=== PATIENT | male | born 1975 | race Two or more races ===

== ENCOUNTER 2023-07-25 09:02 | Emergency (ER) | payer OTHER ==
[2023-07-25 09:17] VITALS: BP 125/78; PULSE 73; RESP 18; TEMP 98.2; BMI 24.9
== END 2023-07-25 12:47 | disposition home or self-care (01) ==
LOC: JERFT 09:02 → JER 09:02 → JERFT 12:47
DX: S93.491A Sprain of other ligament of right ankle, initial encounter (principal); M25.511 Pain in right shoulder; M25.571 Pain in right ankle and joints of right foot; W10.8XXA Fall (on) (from) other stairs and steps, initial encounter
CPT/HCPCS: 73030-TC-RT-FY; 73610-TC-RT-FY; 73630-TC-RT-FY; 99284-25

== ENCOUNTER 2023-12-25 05:41 | Emergency (ER) | payer OTHER ==
[2023-12-25 05:50] VITALS: BP 112/81; PULSE 76; RESP 18; TEMP 98.1; BMI 25.4
[2023-12-25] MEDS ORDERED: ACETAMINOPHEN INJECTION 100 ML IVPB ONE (06:25)
[2023-12-25] MEDS: ACETAMINOPHEN 1000 MG/100 ML BAG IVPB ONE (06:40)
[2023-12-25 06:52] LABS: BASO % 1.4 % (0-2.0); EOS % 4.9 % (0-4.5); HEMATOCRIT 34.4 % (35.4-49); LYMPH % 17.3 % (8-40); MCHC 32.1 g/dl (32.0-35.9); MEAN CELL VOLUME 77.9 fl (80-96); MEAN PLT VOLUME 8.1 fl (7.5-11.1); MONO % 17.4 % (3.8-10.2); PLATELET COUNT 133 10^3/uL (134-434); RBC 4.41 M/mm3 (4.00-5.60); RDW 18.9 % (11.9-15.9); WHITE BLOOD COUNT 4.1 K/mm3 (4.0-10.0)
[2023-12-25 06:59] LABS: INR 1.27 (0.83-1.09); PROTHROMBIN TIME (PATIENT) 14.3 SEC (9.7-13.0)
[2023-12-25 07:01] LABS: ACTIVATED PTT 38.2 SECONDS (25.2-36.5)
[2023-12-25 07:07] LABS: POTASSIUM 3.5 mmol/L (3.5-5.1)
[2023-12-25 07:09] LABS: BLOOD UREA NITROGEN 5.8 mg/dL (7-18); CALCIUM 7.8 mg/dL (8.5-10.1)
[2023-12-25 07:10] LABS: ALBUMIN 1.6 g/dl (3.4-5.0); MAGNESIUM 1.9 mg/dL (1.8-2.4)
[2023-12-25 07:13] LABS: CREATININE 0.8 mg/dL (0.55-1.3)
[2023-12-25 07:14] LABS: BILIRUBIN,TOTAL 0.8 mg/dL (0.2-1); TOT PROT 6.8 g/dl (6.4-8.2)
[2023-12-25 07:18] LABS: N-TERMINAL BNP 90.4 pg/ml (5-125)
[2023-12-25] MEDS ORDERED: FUROSEMIDE 40 MG/4 ML INJECTABLE VIAL ONE (11:06)
[2023-12-25] MEDS: FUROSEMIDE 40 MG/4 ML INJECTABLE VIAL IVPUSH ONE (11:17)
== END 2023-12-25 12:20 | disposition home or self-care (01) ==
LOC: JER 05:41
PROC: 3E033NZ Introduction of Analgesics, Hypnotics, Sedatives into Peripheral Vein, Percutaneous Approach (ICD-10-PCS; principal; 2023-12-25)
PROC: 3E033GC Introduction of Other Therapeutic Substance into Peripheral Vein, Percutaneous Approach (ICD-10-PCS; 2023-12-25)
DX: G62.9 Polyneuropathy, unspecified (principal); K62.5 Hemorrhage of anus and rectum; M79.89 Other specified soft tissue disorders; R60.0 Localized edema; R26.2 Difficulty in walking, not elsewhere classified; M79.661 Pain in right lower leg; M79.662 Pain in left lower leg
CPT/HCPCS: 36415; 80053; 83735; 83880; 85025; 85610; 85730; 93005; 93010; 93970-TC; 99285-25; J0131

== ENCOUNTER 2024-08-08 01:23 | Inpatient (IN) | payer OTHER ==
[2024-08-08] MEDS ORDERED: ONDANSETRON 4 MG/2 ML VIAL ONE (03:01)
[2024-08-08] MEDS ORDERED: FAMOTIDINE 20 MG/50 ML IVPB 20 MG/50 ML MG IVPB ONE (03:01)
[2024-08-08] MEDS: FAMOTIDINE 20 MG/50 ML IVPB 20 MG/50 ML MG IVPB ONE (03:19)
[2024-08-08] MEDS: ONDANSETRON 4 MG/2 ML VIAL IVPB ONE (03:19)
[2024-08-08] MEDS: SODIUM CHLORIDE 0.9% 500 ML INFUS.BAG IV ONE (03:19)
[2024-08-08 03:23] LABS: BASO % 1.3 % (0-2.0); EOS % 0.1 % (0-4.5); HEMATOCRIT 34.5 % (35.4-49); LYMPH % 4.4 % (8-40); MCH 23.9 pg (25.7-33.7); MEAN CELL VOLUME 74.8 fl (80-96); MEAN PLT VOLUME 8.5 fl (7.5-11.1); NEUT % 77.2 % (42.8-82.8); PLATELET COUNT 142 10^3/uL (134-434); RBC 4.61 M/mm3 (4.00-5.60); RDW 20.9 % (11.9-15.9); WHITE BLOOD COUNT 6.1 K/mm3 (4.0-10.0)
[2024-08-08 03:48] LABS: INR 1.24 (0.83-1.09); POTASSIUM 3.2 mmol/L (3.5-5.1); PROTHROMBIN TIME (PATIENT) 13.9 SEC (9.7-13.0)
[2024-08-08 03:50] LABS: CALCIUM 8.5 mg/dL (8.5-10.1)
[2024-08-08 03:51] LABS: ACTIVATED PTT 33.4 SECONDS (25.2-36.5); ALBUMIN 2.7 g/dl (3.4-5.0); BLOOD UREA NITROGEN 9.7 mg/dL (7-18); MAGNESIUM 1.4 mg/dL (1.8-2.4)
[2024-08-08 03:54] LABS: CREATININE 1.1 mg/dL (0.55-1.3); PHOSPHOROUS 2.8 mg/dL (2.5-4.9)
[2024-08-08 03:55] LABS: BILIRUBIN,TOTAL 1.3 mg/dL (0.2-1); TOT PROT 7.8 g/dl (6.4-8.2)
[2024-08-08 04:02] LABS: ANISOCYTOSIS 1+; HELMET CELLS 1+; MACROCYTOSIS 0; OVALOCYTE 1+; TEAR DROP CELLS 1+
[2024-08-08 04:04] LABS: LACTIC ACID 9.4 mmol/L (0.4-2.0)
[2024-08-08] MEDS ORDERED: SODIUM CHLORIDE 0.9% 500 ML INFUS.BAG IV ONE (04:17)
[2024-08-08] MEDS ORDERED: MAGNESIUM SULFATE IN WATER 2 GM/50 ML IVPB IVPB ONE (04:22)
[2024-08-08] MEDS: DEXTROSE 5%-NORMAL SALINE 1,000 ML IV ONE (04:30)
[2024-08-08] MEDS: MAGNESIUM SULF 50% (8.12 MEQ/2 ML-1 GM VIAL) IVPB ONE (04:30)
[2024-08-08] MEDS ORDERED: KCL 10 MEQ IVPB 30 MEQ/300 ML INFUS.BAG IVPB ONE (04:32)
[2024-08-08] MEDS ORDERED: DEXTROSE 50%-WATER 25 GM/50 ML DISP.SYRIN ONE (04:33)
[2024-08-08] MEDS ORDERED: TRIMETHOBENZAMIDE HCL 200MG/2ML INJ IM ONE (04:37)
[2024-08-08] MEDS: TRIMETHOBENZAMIDE HCL 200MG/2ML INJ IM ONE (04:41)
[2024-08-08] MEDS: KCL 10 MEQ IVPB 10 MEQ/100 ML INFUS.BAG IVPB SCH (05:07)
[2024-08-08] MEDS ORDERED: diazePAM CARPU-JECT 10 MG/2 ML DISP.SYRIN ONE ×2 (08:30→09:23)
[2024-08-08 08:39] LABS: VENOUS BASE EXCESS -0.7 mmol/L (-2-2); VENOUS O2 SATURATION 67.6 % (70-80); VENOUS PCO2 29.3 mmHg (38-52); VENOUS PH 7.493 (7.310-7.410)
[2024-08-08] MEDS: diazePAM CARPU-JECT 10 MG/2 ML DISP.SYRIN IVPUSH ONE ×2 (08:40→09:31)
[2024-08-08 08:56] LABS: LACTIC ACID 3.8 mmol/L (0.4-2.0)
[2024-08-08] MEDS: THIAMINE HCL 200 MG/2 ML VIAL IVPB SCH (11:00)
[2024-08-08] MEDS ORDERED: THIAMINE HCL 200 MG/2 ML VIAL ONE (11:04)
[2024-08-08] MEDS: ONDANSETRON 4 MG/2 ML VIAL IVPB PRN (16:56)
[2024-08-08] MEDS: SODIUM CHLORIDE 1,000 ML IV SCH (20:39)
[2024-08-09 09:13] LABS: POTASSIUM 3.7 mmol/L (3.5-5.1)
[2024-08-09 09:22] LABS: ALBUMIN 2.2 g/dl (3.4-5.0); BLOOD UREA NITROGEN 8.4 mg/dL (7-18); CALCIUM 7.9 mg/dL (8.5-10.1)
[2024-08-09 09:26] LABS: CREATININE 0.8 mg/dL (0.55-1.3)
[2024-08-09 09:27] LABS: TOT PROT 6.2 g/dl (6.4-8.2)
[2024-08-09] MEDS: PANTOPRAZOLE SODIUM 40 MG VIAL IVPUSH SCH (11:08)
[2024-08-09] MEDS: ENOXAPARIN NA (PORCINE) 40 MG/0.4 ML DISP.SYRIN SQ SCH (11:08)
[2024-08-09] MEDS: KCL 10 MEQ IVPB 10 MEQ/100 ML INFUS.BAG IVPB SCH (11:10)
[2024-08-09] MEDS: SPIRONOLACTONE 25 MG TABLET PO SCH (11:10)
[2024-08-10 09:16] LABS: HEMATOCRIT 32.8 % (35.4-49); HEMOGLOBIN 10.3 GM/dL (11.7-16.9); MCHC 31.3 g/dl (32.0-35.9); MEAN CELL VOLUME 76.6 fl (80-96); MEAN PLT VOLUME 9.1 fl (7.5-11.1); PLATELET COUNT 120 10^3/uL (134-434); RBC 4.28 M/mm3 (4.00-5.60); RDW 20.6 % (11.9-15.9); WHITE BLOOD COUNT 3.6 K/mm3 (4.0-10.0)
[2024-08-10 09:54] LABS: POTASSIUM 3.9 mmol/L (3.5-5.1)
[2024-08-10 10:33] LABS: ANISOCYTOSIS 2+; MACROCYTOSIS 0
[2024-08-10 10:42] LABS: CALCIUM 8.4 mg/dL (8.5-10.1)
[2024-08-10 10:43] LABS: ALBUMIN 2.2 g/dl (3.4-5.0); BLOOD UREA NITROGEN 8.7 mg/dL (7-18)
[2024-08-10 10:47] LABS: CREATININE 0.8 mg/dL (0.55-1.3)
[2024-08-10 10:48] LABS: BILIRUBIN,TOTAL 1.5 mg/dL (0.2-1); TOT PROT 6.4 g/dl (6.4-8.2)
[2024-08-10 16:13] VITALS: BMI 25.9
[2024-08-10 23:18] LABS: HIV INTERPRETATION NEGATIVE (NEGATIVE)
[2024-08-11 08:09] LABS: HEMATOCRIT 32.6 % (35.4-49); HEMOGLOBIN 10.3 GM/dL (11.7-16.9); MCH 24.3 pg (25.7-33.7); MCHC 31.6 g/dl (32.0-35.9); MEAN CELL VOLUME 76.8 fl (80-96); MEAN PLT VOLUME 9.1 fl (7.5-11.1); PLATELET COUNT 126 10^3/uL (134-434); RBC 4.24 M/mm3 (4.00-5.60); RDW 20.7 % (11.9-15.9); WHITE BLOOD COUNT 4.5 K/mm3 (4.0-10.0)
[2024-08-11 08:42] LABS: POTASSIUM 4.1 mmol/L (3.5-5.1)
[2024-08-11 08:51] LABS: ALBUMIN 2.2 g/dl (3.4-5.0); CALCIUM 8.3 mg/dL (8.5-10.1)
[2024-08-11 08:52] LABS: BLOOD UREA NITROGEN 9.2 mg/dL (7-18)
[2024-08-11 08:55] LABS: CREATININE 0.9 mg/dL (0.55-1.3)
[2024-08-11 08:57] LABS: BILIRUBIN,TOTAL 1.3 mg/dL (0.2-1); TOT PROT 6.4 g/dl (6.4-8.2)
[2024-08-11 09:38] LABS: ANISOCYTOSIS 1+
[2024-08-11] MEDS: SODIUM CHLORIDE 0.45% 1,000 ML IV SCH (15:27)
[2024-08-12] MEDS: LACTULOSE 20 GM/30 ML UDC (FOR ORAL USE ONLY) PO SCH (15:54)
[2024-08-13] MEDS: ACETAMINOPHEN 325 MG TABLET (FP) PO PRN (14:25)
[2024-08-14 08:46] LABS: BASO % 1.7 % (0-2.0); EOS % 9.1 % (0-4.5); HEMATOCRIT 36.9 % (35.4-49); HEMOGLOBIN 11.3 GM/dL (11.7-16.9); LYMPH % 19.2 % (8-40); MCH 23.9 pg (25.7-33.7); MCHC 30.6 g/dl (32.0-35.9); MEAN CELL VOLUME 78.1 fl (80-96); MEAN PLT VOLUME 8.6 fl (7.5-11.1); MONO % 19.9 % (3.8-10.2); NEUT % 50.1 % (42.8-82.8); PLATELET COUNT 149 10^3/uL (134-434); RBC 4.73 M/mm3 (4.00-5.60); RDW 20.5 % (11.9-15.9); WHITE BLOOD COUNT 3.7 K/mm3 (4.0-10.0)
[2024-08-14 08:55] LABS: POTASSIUM 4.5 mmol/L (3.5-5.1)
[2024-08-14 08:57] LABS: CALCIUM 9.1 mg/dL (8.5-10.1)
[2024-08-14 08:58] LABS: ALBUMIN 2.4 g/dl (3.4-5.0); BLOOD UREA NITROGEN 7.7 mg/dL (7-18)
[2024-08-14 09:03] LABS: BILIRUBIN,TOTAL 1.1 mg/dL (0.2-1); TOT PROT 6.9 g/dl (6.4-8.2)
[2024-08-14 09:30] LABS: ANISOCYTOSIS 2+; MACROCYTOSIS 0
[2024-08-15] MEDS: METOCLOPRAMIDE HCL 10 MG TABLET (FP) PO SCH (17:29)
[2024-08-16 08:12] LABS: POTASSIUM 3.6 mmol/L (3.5-5.1)
[2024-08-16 08:19] LABS: CALCIUM 8.9 mg/dL (8.5-10.1)
[2024-08-16 08:20] LABS: ALBUMIN 2.5 g/dl (3.4-5.0); BLOOD UREA NITROGEN 7.9 mg/dL (7-18)
[2024-08-16 08:23] LABS: CREATININE 1.2 mg/dL (0.55-1.3)
[2024-08-16 08:25] LABS: TOT PROT 7.4 g/dl (6.4-8.2)
[2024-08-16] MEDS: SUCRALFATE 1 GM/10 ML UNIT DOSE CUPS PO SCH (09:18)
[2024-08-16 09:23] LABS: HEMATOCRIT 37.2 % (35.4-49); HEMOGLOBIN 11.4 GM/dL (11.7-16.9); MCH 23.7 pg (25.7-33.7); MCHC 30.7 g/dl (32.0-35.9); MEAN CELL VOLUME 77.3 fl (80-96); MEAN PLT VOLUME 8.5 fl (7.5-11.1); PLATELET COUNT 149 10^3/uL (134-434); RBC 4.82 M/mm3 (4.00-5.60); RDW 20.5 % (11.9-15.9); WHITE BLOOD COUNT 4.2 K/mm3 (4.0-10.0)
[2024-08-16 11:10] LABS: ANISOCYTOSIS 1+; OVALOCYTE 1+
[2024-08-19 18:34] VITALS: BP 103/61; PULSE 79; RESP 20; TEMP 97.9
== END 2024-08-19 18:53 | disposition home or self-care (01) ==
LOC: JER 01:23 → JERBED 10:03 → J7W 15:39 → OBSVTOIN 08-10 14:25 → J7W 08-18 04:39
PROVIDERS: ADMIT Family Medicine; ATTEND Family Medicine
PROC: 0DB68ZX Excision of Stomach, Via Natural or Artificial Opening Endoscopic, Diagnostic (ICD-10-PCS; principal; 2024-08-13 11:45)
DX: K81.9 Cholecystitis, unspecified (principal); K70.31 Alcoholic cirrhosis of liver with ascites; K29.50 Unspecified chronic gastritis without bleeding; R11.2 Nausea with vomiting, unspecified; E87.6 Hypokalemia; E83.42 Hypomagnesemia; K44.9 Diaphragmatic hernia without obstruction or gangrene
CPT/HCPCS: 0241U-QW; 36415; 71045-TC-FY; 74177-TC; 74183-TC; 76705-TC; 78226-TC; 80053; 82010; 82550; 82553; 82803; 83605; 83690; 83735; 84100; 84484; 85025; 85610; 85730; 87086; 87186; 87389; 88305-TC; 88342-TC; 93005; 93010; 93975; 99285-25; A9537; G0378; Q9967